=== PATIENT | male | born 1970 | race African-American/Black ===

== ENCOUNTER 2018-11-11 15:39 | Emergency (ER) | payer OTHER ==
[2018-11-11 15:51] VITALS: BP 101/73; PULSE 85; TEMP 98.9; BMI 25.0
[2018-11-11] MEDS ORDERED: SODIUM CHLORIDE 1,000 ML IV STA (16:10)
--- NOTE | 2018-11-11 16:14 | PDOC ---
History of Present Illness - General Chief Complaint: Cold Symptoms Stated Complaint: COUGHING Time Seen by Provider: 11/11/18 15:57 History Source: Patient - History of Present Illness Timing/Duration: reports: constant Past History - Past Medical History Allergies/Adverse Reactions: Allergies Allergy/AdvReac Type Severity Reaction Status Date / Time No Known Allergies Allergy Verified 11/09/15 07:35 Home Medications: Ambulatory Orders NK [No Known Home Medication] 11/07/15 COPD: No GI Disorders: Yes (hernia) Kidney Stones: No - Surgical History Abdominal Surgery: Yes (HERNIA) - Immunization History Immunization Up to Date: No - Suicide/Smoking/Psychosocial Hx Smoking History: Never smoked Have you smoked in the past 12 months: No Number of Cigarettes Smoked Daily: 4 (Marijuana w/tobacco) If you are a former smoker, when did you quit?: RADHA 5-6 x/day Information on smoking cessation initiated: No 'Breaking Loose' booklet given: 11/09/15 Hx Alcohol Use: No Drug/Substance Use Hx: No Substance Use Type: None, Marijuana Hx Substance Use Treatment: No Review of Systems - Review of Systems Constitutional: Yes: Weakness. No: Chills, Fever Respiratory: No: Cough, Shortness of Breath Cardiac (ROS): No: Chest Pain ABD/GI: Yes: Diarrhea, Nausea, Vomiting, Abdominal cramping : No: Dysuria *Physical Exam - Vital Signs Last Vital Signs Temp Pulse Resp BP Pulse Ox 98.9 F 85 16 101/73 98 11/11/18 15:43 11/11/18 15:43 11/11/18 15:43 11/11/18 15:43 11/11/18 15:43 - Physical Exam Comments: 11/11/18 16:13 appears lethargic General Appearance: Yes: Appropriately Dressed HEENT: positive: Normal ENT Inspection, Normal Voice. negative: Scleral Icterus (R), Scleral Icterus (L) Neck: positive: Supple Respiratory/Chest: positive: Lungs Clear, Normal Breath Sounds. negative: Respiratory Distress Cardiovascular: positive: Regular Rate, S1, S2 Gastrointestinal/Abdominal: positive: Soft. negative: Tender Integumentary: positive: Dry, Warm Neurologic: positive: Fully Oriented, Alert, Normal Mood/Affect Moderate Sedation - Procedure Monitoring Vital Signs: Procedure Monitoring Vital Signs Temperature 98.9 F 11/11/18 15:43 Pulse Rate 85 11/11/18 15:43 Respiratory Rate 16 11/11/18 15:43 Blood Pressure 101/73 11/11/18 15:43 O2 Sat by Pulse Oximetry (%) 98 11/11/18 15:43 ED Treatment Course - LABORATORY CBC & Chemistry Diagram: 11/11/18 16:20 11/11/18 16:20 Medical Decision Making - Medical Decision Making 11/11/18 16:12 48-year-old male, denies any past medical history here with nausea, vomiting, diarrhea and abdominal pain 1 week, now w/ generalized weakness. No fever or chills. States recently diagnosed with the flu See exam Possible viral illness R/o flu -labs -IVF -reassess 11/11/18 17:12 Labs were unremarkable. Patient improved with IV fluids. Will dc with supportive treatment and PMD follow-up *DC/Admit/Observation/Transfer Diagnosis at time of Disposition: Viral illness - Discharge Dispostion Disposition: HOME Condition at time of disposition: Improved - Referrals - Patient Instructions Printed Discharge Instructions: DI for Viral Syndrome Additional Instructions: The cause of your symptoms is most likely viral. Your labs and flu test were negative. Please continue to hydrate at home and follow-up with your PMD - Post Discharge Activity Forms/Work/School Notes: Back to Work
[2018-11-11 16:40] LABS: BASO % 0.6 % (0-2.0); EOS % 0.1 % (0-4.5); HEMATOCRIT 45.2 % (35.4-49); HEMOGLOBIN 15.5 GM/dL (11.7-16.9); LYMPH % 23.5 % (8-40); MCH 28.2 pg (25.7-33.7); MCHC 34.3 g/dl (32.0-35.9); MEAN CELL VOLUME 82.2 fl (80-96); MEAN PLT VOLUME 8.5 fl (7.5-11.1); MONO % 12.2 % (3.8-10.2); NEUT % 63.6 % (42.8-82.8); PLATELET COUNT 182 K/MM3 (134-434); RDW 13.7 % (11.9-15.9); WHITE BLOOD COUNT 4.6 K/mm3 (4.0-10.0)
[2018-11-11 17:07] LABS: ALBUMIN 3.3 g/dl (3.4-5.0); ALK PHOS 75 U/L (45-117); ANION GAP 9 MMOL/L (8-16); BILIRUBIN,TOTAL 0.5 mg/dL (0.2-1); BLOOD UREA NITROGEN 15 mg/dL (7-18); CALCIUM 7.7 mg/dL (8.5-10.1); CHLORIDE 100 mmol/L (98-107); CO2 27 mmol/L (21-32); CREATININE 1.2 mg/dL (0.55-1.3); GLUCOSE,RANDOM 167 mg/dL (74-106); SGOT/AST 48 U/L (15-37); SGPT/ALT 46 U/L (13-61); SODIUM 136 mmol/L (136-145); TOT PROT 6.4 g/dl (6.4-8.2)
== END 2018-11-11 17:14 | disposition home or self-care (01) ==
LOC: JERFT 15:39
PROC: 3E0337Z Introduction of Electrolytic and Water Balance Substance into Peripheral Vein, Percutaneous Approach (ICD-10-PCS; principal; 2018-11-11)
DX: B34.9 Viral infection, unspecified (principal)
CPT/HCPCS: 36415; 80053; 85025; 87804; 96360; 99281-25; J7030

== ENCOUNTER 2021-01-23 13:42 | Emergency (ER) | payer OTHER ==
[2021-01-23 13:54] VITALS: TEMP 97.3; BMI 22.8
[2021-01-23] MEDS ORDERED: ONDANSETRON 4 MG/2 ML VIAL IVPUSH ONE ×2 (14:58→20:13)
[2021-01-23] MEDS ORDERED: SODIUM CHLORIDE 0.9% 500 ML INFUS.BAG IV ONE ×2 (14:58→17:20)
[2021-01-23] MEDS ORDERED: ONDANSETRON 4 MG/2 ML VIAL ONE ×2 (15:06→20:12)
[2021-01-23 15:40] LABS: BASO % 0.3 % (0-2.0); EOS % 0.1 % (0-4.5); HEMATOCRIT 50.1 % (35.4-49); HEMOGLOBIN 16.8 GM/dL (11.7-16.9); LYMPH % 18.3 % (8-40); MCH 27.2 pg (25.7-33.7); MCHC 33.5 g/dl (32.0-35.9); MEAN CELL VOLUME 81.1 fl (80-96); MEAN PLT VOLUME 8.7 fl (7.5-11.1); MONO % 9.7 % (3.8-10.2); NEUT % 71.6 % (42.8-82.8); PLATELET COUNT 263 K/MM3 (134-434); RBC 6.18 M/mm3 (4.00-5.60); WHITE BLOOD COUNT 10.3 K/mm3 (4.0-10.0)
[2021-01-23 16:04] LABS: ALBUMIN 4.5 g/dl (3.4-5.0); BLOOD UREA NITROGEN 21.9 mg/dL (7-18); CALCIUM 10.5 mg/dL (8.5-10.1)
[2021-01-23 16:06] LABS: CREATININE 1.3 mg/dL (0.55-1.3)
[2021-01-23 16:09] LABS: BILIRUBIN,TOTAL 1.4 mg/dL (0.2-1); TOT PROT 8.3 g/dl (6.4-8.2)
[2021-01-23 17:59] LABS: EPI CELLS 10 /uL (0-25.1); HYALINE CASTS 4 /uL (0-3.1); PH,URINE 7.5 (5.0-8.0); URINE APPEARANCE CLEAR; URINE BACTERIA 10 /uL (0-1359); URINE BILIRUBIN NEGATIVE (NEGATIVE); URINE COLOR DK YELLOW; URINE GLUCOSE (UA) NEGATIVE (NEGATIVE); URINE KETONE 2+ (NEGATIVE); URINE LEUK ESTERASE NEGATIVE (NEGATIVE); URINE NITRITE NEGATIVE (NEGATIVE); URINE PROTEIN 1+ (NEGATIVE); URINE RBC 35 /uL (0-23.9); URINE WBC 3 /uL (0-25.8)
[2021-01-23 20:12] VITALS: BP 119/67; PULSE 73
== END 2021-01-23 20:33 | disposition home or self-care (01) ==
LOC: JER 13:42
PROC: 3E033GC Introduction of Other Therapeutic Substance into Peripheral Vein, Percutaneous Approach (ICD-10-PCS; principal; 2021-01-23)
PROC: 3E033GC Introduction of Other Therapeutic Substance into Peripheral Vein, Percutaneous Approach (ICD-10-PCS; 2021-01-23)
DX: R11.2 Nausea with vomiting, unspecified (principal); R19.7 Diarrhea, unspecified
CPT/HCPCS: 36415; 80053; 81003; 83690; 85025; 87086; 96374; 96376; 99284-25